=== PATIENT | male | born 1930 | race Caucasian/White ===

== ENCOUNTER 2017-06-12 17:39 | Emergency (ER) | payer MEDICARE, OTHER ==
[~2017-06-12] VITALS: Ht 167.6 cm; Wt 67.3 kg
[~2017-06-12 17:39] MED LIST: APIX5TAB PO; PRAV20 PO; TAMS5CAP PO; VITA20003 PO
[2017-06-12] MEDS ORDERED: TAMS5CAP PO (17:51)
[2017-06-12] MEDS ORDERED: APIX5TAB PO (17:51)
[2017-06-12] MEDS ORDERED: PRAV20TA2 PO (17:51)
[2017-06-12] MEDS ORDERED: BICA50TA PO (17:52)
[2017-06-12 17:55] VITALS: BP 185/68; PULSE 63; RESP 16; TEMP 98.6; O2SAT 95
[2017-06-12 18:49] VITALS: BP 145/67; PULSE 60; RESP 16; O2SAT 94
--- NOTE | 2017-06-12 18:52 | PD ---
HPI Chief Complaint: Respiratory Symptoms Time Seen by Provider: 18:21 Travel History International Travel<30 days: No Contact w/Intl Traveler<30days: No Traveled to known affect area: No History of Present Illness HPI This is an 87-year-old man who presents to the emergency department complaining of some hemoptysis. He is on Eliquis. He has a pacemaker. Sounds like he is on this for rhythm problems and is not entirely clear. He does also have prostate cancer, and hyperlipidemia. He is been treated for conjunctivitis in the right eye which is been improving. He's been doing Eyedrops for couple days. He states that he's been feeling generally well and healthy until today he was getting into the shower any coughed up some phlegm that a couple specks of blood in it. He's not had any other episodes of hemoptysis. He's been intentionally losing weight but has no unexplained weight loss. No night sweats. Breathing is been doing fine. No other complaints. History Past Medical History Narrative Medical Pacemaker On Eliquis Prostates [place] Hyperlipidemia Influenza Vaccination: Yes Social History Alcohol Use: No Tobacco Use: No Allergies-Medications (Allergen,Severity, Reaction): Coded Allergies: No Known Allergies (Unverified , 06/12/17) Reported Meds & Prescriptions Reported Meds & Active Scripts Active Reported Bicalutamide 50 Mg Tab 50 Mg PO DAILY Hazardous agent; use appropriate precautions for handling & disposal. Flomax (Tamsulosin HCl) 0.4 Mg Cap 0.4 Mg PO HS Pravastatin 20 Mg Tab 20 Mg PO DAILY Eliquis (Apixaban) 5 Mg Tab 5 Mg PO BID Review of Systems Except as stated in HPI: all other systems reviewed are Neg Physical Exam Narrative GENERAL: Well-appearing 87 year-old woman, no acute distress. SKIN: Focused skin assessment warm/dry. 2 small bruises on the right arm. No other bruising. HEAD: Atraumatic. Normocephalic. EYES: Pupils equal and round. No scleral icterus. No injection or drainage. ENT: No nasal bleeding or discharge. Mucous membranes pink and moist. NECK: Trachea midline. No JVD. CARDIOVASCULAR: Regular rate and rhythm. No murmur appreciated. RESPIRATORY: No accessory muscle use. Clear to auscultation. Breath sounds equal bilaterally. GASTROINTESTINAL: Abdomen soft, non-tender, nondistended. Hepatic and splenic margins not palpable. MUSCULOSKELETAL: No obvious deformities. No clubbing. No cyanosis. No edema. Data Data Last Documented VS Vital Signs Date Time Temp Pulse Resp B/P Pulse Ox O2 Delivery O2 Flow Rate FiO2 06/12/17 18:49 60 16 145/67 94 Room Air 06/12/17 17:55 98.6 Orders Chest, Pa & Lat (06/12/17 ) MDM Medical Decision Making Medical Screen Exam Complete: Yes Emergency Medical Condition: Yes Interpretation(s) Chest x-ray negative Differential Diagnosis Bronchitis, URI, mass, thrombophilia coagulopathy, other Narrative Course Medical decision making Is a 87-year-old man on Eliquis, I think for arrhythmia and A. fib but it's not entirely clear, who presents with one brief relief minimal minimal episode of hemoptysis with just a couple specks of blood. He looks well. He's not had any other unusual bleeding. He's not had symptoms suggestive of malignancy like unexplained weight also or night sweats. We'll check a chest x-ray, otherwise he can monitor symptoms as an outpatient follow-up with his primary physician. Diagnosis Primary Impression: Hemoptysis Additional Instructions: Follow-up with your primary doctor in the next week. Return to the emergency department for any worsening trouble breathing, or any other new or worsening symptoms. Disposition: 01 DISCHARGE HOME Condition: Stable Jey Miguel MD Jun 12, 2017 18:52
--- NOTE | 2017-06-12 18:54 | RADRPT ---
EXAM DATE/TIME: 06/12/2017 18:37 [facility] COMPARISON: No previous studies available for comparison. INDICATIONS : Hemoptysis. MEDICAL HISTORY : Osteoarthritis. Hypercholesterolemia. Irregular heartbeat SURGICAL HISTORY : Pacemaker. Coronary artery stent. Cholecystectomy. Hernia repair ENCOUNTER: Initial ACUITY: 1 day PAIN SCORE: 2/10 LOCATION: Bilateral chest FINDINGS: PA and lateral views of the chest demonstrate the lungs to be symmetrically aerated without evidence of mass, infiltrate or effusion. The cardiomediastinal contours are unremarkable. Mild tortuosity d escending thoracic aorta. Cardiac pacer with 2 leads. Degenerative changes and high riding shoulder s bilaterally. CONCLUSION: No focal infiltrates seen. Kvng Duffy MD on June 12, 2017 at 18:51 Board Certified Radiologist. This report was verified electronically.
[2017-06-12 19:03] VITALS: BP 154/73
== END 2017-06-12 19:15 | disposition home or self-care (01) ==
LOC: PHED 17:39
DX: R04.2 Hemoptysis (principal); E78.5 Hyperlipidemia, unspecified; Z79.01 Long term (current) use of anticoagulants; Z95.0 Presence of cardiac pacemaker; Z85.46 Personal history of malignant neoplasm of prostate
CPT/HCPCS: 71020; 99283